=== PATIENT | female | born 1985 | race Asian ===

== ENCOUNTER 2016-12-15 14:40 | Emergency (ER) | payer OTHER ==
[~2016-12-15] VITALS: Ht 154.9 cm; Wt 52.2 kg
[2016-12-15 14:57] VITALS: BP 107/65
--- NOTE | 2016-12-15 15:49 | RAD ---
Indication cough. PA and lateral views of the chest were obtained. No prior imaging is available. The heart and pulmonary vessels appear normal. The lungs are clear. There is no pleural fluid or pneumothorax. The bony structures appear grossly intact. IMPRESSION: No acute or focal process is seen in the chest
[2016-12-15] MEDS ORDERED: KETO5DRO3 EACHEYE (16:08)
[2016-12-15] MEDS ORDERED: CETI10TA22 PO (16:08)
[2016-12-15] MEDS ORDERED: BENZ100C PO (16:08)
--- NOTE | 2016-12-15 16:08 | PHYS DOC ---
Past Medical History Past Medical History: No Pertinent History Past Surgical History: No Surgical History Alcohol Use: None Drug Use: None Adult General Chief Complaint Chief Complaint: EYE PROBLEMS [facility] HPI Patient is a 31 year old female with no significant medical history who presents with bilateral eye itching and pain intermittently for almost a week. Patient states she was seen [facility] the [facility] and was instructed to buy eyedrops. She states she never brought to the eyedrops because she does not want to use eye drops. Patient denies any vision loss. Patient's also complaining of a productive cough for 4 days. She states yesterday she coughed and had a tiny streak of blood in her sputum and was concerned. She denies any chest pain or shortness of breath. She is also complaining of body aches. Historian was patient using personal companion line for Malagasy. Review of Systems Review of Systems Constitutional: body aches Eyes: Bilateral eye redness and itchiness with pain for one week HENT: Denies nasal congestion or sore throat [] Respiratory: cough Cardiovascular: No additional information not addressed in HPI [] GI: Denies abdominal pain, nausea, vomiting, bloody stools or diarrhea [] : Denies dysuria or hematuria [] Musculoskeletal: Denies back pain or joint pain [] Integument: Denies rash or skin lesions [] Neurologic: Denies headache, focal weakness or sensory changes [] Endocrine: Denies polyuria or polydipsia [] Allergies Allergies Allergies Coded Allergies Type Severity Reaction Last Updated Verified No Known Drug Allergies 12/15/16 No Physical Exam Physical Exam Constitutional: Well developed, well nourished, no acute distress, non-toxic appearance. [] HENT: Normocephalic, atraumatic, bilateral external ears normal, oropharynx moist, no oral exudates, nose normal. [] Eyes: PERRLA, EOMI, conjunctiva normal, no discharge. [] Neck: Normal range of motion, no tenderness, supple, no stridor. [] Cardiovascular:Heart rate regular rhythm, no murmur [] Lungs & Thorax: Bilateral breath sounds clear to auscultation [] Abdomen: Bowel sounds normal, soft, no tenderness, no masses, no pulsatile masses. [] Skin: Warm, dry, no erythema, no rash. [] Back: No tenderness, no CVA tenderness. [] Extremities: No tenderness, no cyanosis, no clubbing, ROM intact, no edema. [] Neurologic: Alert and oriented X 3, normal motor function, normal sensory function, no focal deficits noted. [] Psychologic: Affect normal, judgement normal, mood normal. [] Current Patient Data Vital Signs Vital Signs Date Time Temp Pulse Resp B/P (MAP) Pulse Ox O2 Delivery O2 Flow Rate FiO2 12/15/16 14:57 98.4 84 18 97 Room Air 98.4 EKG EKG [] Radiology/Procedures Radiology/Procedures [] Course & Med Decision Making Course & Med Decision Making Pertinent Labs and Imaging studies reviewed. (See chart for details) This is a 31 year old Malagasy speaking patient using the personal companion line complaining of bilateral eye pain redness and itching for almost 7 days. Patient states she was seen at the health department and was instructed to use eye drops. She states she did not buy the eyedrops because she does not want to use eye drops. I highly suspect she has allergic conjunctivitis. Sent her home with zaditor eye drops and Zyrtec. She is also complaining of a productive cough , chest x-ray interpreted by radiologist is negative for any acute findings. Patient was discharged with Tessalon Perles for her cough. Discharged with ibuprofen for pain. Follow-up with her PCP in one week as well as clinical ob in a week. She was provided return precautions and discharged in stable condition. Dragon Disclaimer Dragon Disclaimer This electronic medical record was generated, in whole or in part, using a voice recognition dictation system. Departure Departure Impression: Primary Impression: Allergic conjunctivitis of both eyes Additional Impression: Cough Disposition: 01 HOME, SELF-CARE Condition: STABLE Referrals: NO PCP (PCP) Susi BUTTERFIELD MD Follow-up in one week Patient Instructions: Allergic Conjunctivitis, [id number], Cough, Adult Additional Instructions: Please use the prescribed eye drops as ordered. Take the rest of the medicines as prescribed. You can follow-up with the provided eye doctor if symptoms continue in the next 7 days. Take the prescribed pain medicine for pain or fever. Come back to the ED symptoms worsen. Scripts Benzonatate (TESSALON PERLE) 100 Mg Capsule 1 CAP PO TID, #30 CAP Prov: MUTUNGA,FELICITY MODEL TECHNICIAN 12/15/16 Cetirizine Hcl (ZYRTEC) 10 Mg Tablet 1 TAB PO DAILY, #30 TAB 2 Refills Prov: FELICITY MORFIN APRN 12/15/16 Ketotifen Fumarate (ZADITOR) 5 Ml Drops 1 DROP EACHEYE BID, #5 ML 1 Refill Prov: FELICITY MORFIN APRN 12/15/16 Problem Qualifiers FELICITY MORFIN APRN Dec 15, 2016 16:08
== END 2016-12-15 16:11 | disposition home or self-care (01) ==
LOC: ER 14:40
DX: H10.13 Acute atopic conjunctivitis, bilateral (principal); R05 Cough; M79.1 Myalgia
CPT/HCPCS: 71020; 99284-25

== ENCOUNTER 2018-04-12 11:08 | Emergency (ER) | payer BC, OTHER ==
[~2018-04-12] VITALS: Ht 154.9 cm; Wt 60.3 kg
[~2018-04-12 11:08] MED LIST: BENZ100C PO; CETI10TA22 PO; KETO5DRO4 EACHEYE
[2018-04-12 11:54] LABS: BILIRUBIN,URINE NEGATIVE (NEG); CLARITY,URINE CLEAR; COLOR,URINE YELLOW; NITRITE,URINE NEGATIVE (NEG); PROTEIN,URINE NEGATIVE (NEG-TRACE); UROBILINOGEN,URINE 0.2 mg/dL (0.2 mg/dL)
[2018-04-12 12:14] LABS: BACTERIA,URINE 0 /HPF (0-FEW); RBC,URINE OCC /HPF (0-2)
[2018-04-12 12:15] LABS: SQUAMOUS EPITHELIAL CELL,UR MOD /LPF
--- NOTE | 2018-04-12 12:23 | EKG ---
[facility] [address] [place] [address] Test Date: 2018-04-12 Test Time: 11:41:44 Pat Name: SELAM ROBERTO Department: Room: Gender: F Fashion Stylist: : 1985 Requested By: PRAVEENA BOB Order Number: [id number] Reading MD: Roge Estes Measurements Intervals [place] Rate: 64 P: 44 UT: 152 QRS: 15 QRSD: 84 T: 9 QT: 426 QTc: 439 Interpretive Statements SINUS RHYTHM Electronically Signed On 04-15-2018 12:23:11 CDT by Roge Estes
[2018-04-12 12:34] LABS: BASO # 0.1 x10^3/uL (0.0-0.2); BASO % 1 % (0-3); EOS # 1.2 x10^3/uL (0.0-0.7); EOS % 13 % (0-3); HEMATOCRIT 39.6 % (36.0-47.0); HEMOGLOBIN 13.8 g/dL (12.0-15.5); LYMPH # 2.4 x10^3/uL (1.0-4.8); LYMPH % 25 % (24-48); MEAN CORPUSCULAR HEMOGLOBIN 30 pg (25-35); MEAN CORPUSCULAR HGB CONC 35 g/dL (31-37); MEAN CORPUSCULAR VOLUME 88 fL (79-100); MONO # 0.9 x10^3/uL (0.0-1.1); MONO % 10 % (0-9); NEUT # 4.9 x10^3uL (1.8-7.7); NEUT % 51 % (31-73); PLATELET COUNT 91 x10^3/uL (140-400); RED BLOOD COUNT 4.52 x10^6/uL (3.50-5.40); RED CELL DISTRIBUTION WIDTH 12.5 % (11.5-14.5); WHITE BLOOD COUNT 9.5 x10^3/uL (4.0-11.0)
[2018-04-12 12:49] LABS: CALCIUM 9.9 mg/dL (8.5-10.1); CREATININE 0.6 mg/dL (0.6-1.0); GFR 117.4; POTASSIUM 3.8 mmol/L (3.5-5.1)
[2018-04-12 12:54] LABS: ALBUMIN 4.1 g/dL (3.4-5.0); TOTAL BILIRUBIN 0.8 mg/dL (0.2-1.0); TOTAL PROTEIN 8.4 g/dL (6.4-8.2)
[2018-04-12] MEDS ORDERED: MECLIZINE HCL 12.5 MG TABLET. PO ONE (14:00)
[2018-04-12] MEDS ORDERED: ONDANSETRON ODT 4 MG TAB.RAPDIS. PO ONE (14:00)
[2018-04-12 14:21] LABS: % BANDS 2 % (0-9); % BASOS 2 % (0-3); % EOS 10 % (0-5); % LYMPHS 23 % (24-48); % MONOS 6 % (0-10); % SEGS 57 % (35-66); PLT ESTIMATE DECREASED (ADEQUATE)
[2018-04-12 15:00] VITALS: BP 98/60
[2018-04-12] MEDS ORDERED: ONDA4TAB7 PO (15:26)
[2018-04-12] MEDS ORDERED: MECL25TA3 PO (15:26)
--- NOTE | 2018-04-12 17:21 | PHYS DOC ---
Past Medical History Past Medical History: No Pertinent History Past Surgical History: No Surgical History Alcohol Use: None Drug Use: None Adult General Chief Complaint Chief Complaint: DIZZY/LIGHT HEADED HPI HPI Patient is a 32 year old Stateless female who presents with acute onset dizziness this morning. Patient reports room spinning, nausea and vomiting prior to ED arrival. Heart sinus congestion, tenderness. No fevers chills, [] Review of Systems Review of Systems ROS as per HPI All other systems were reviewed and found to be within normal limits, except as documented in this note. Current Medications Current Medications Current Medications Medications (Trade) Dose Ordered Sig/Palmira Start Time Stop Time Status Last Admin Dose Admin Meclizine HCl (Antivert) 25 mg 1X ONCE 04/12/18 14:00 04/12/18 14:01 DC 04/12/18 14:00 25 MG Ondansetron HCl (Zofran Odt) 4 mg 1X ONCE 04/12/18 14:00 04/12/18 14:01 DC 04/12/18 14:00 4 MG Allergies Allergies Allergies Coded Allergies Type Severity Reaction Last Updated Verified No Known Drug Allergies 12/15/16 No Physical Exam Physical Exam Constitutional: Well developed, well nourished, no acute distress, non-toxic appearance. [] HENT: Normocephalic, atraumatic,maxillary sinus tenderness, bilateral external ears normal, oropharynx moist, no oral exudates, nose congestion, rhinorrheal. [ ] Eyes: PERRLA, EOMI, conjunctiva normal, no discharge. nystagmus, fatigues on exam.[] Neck: Normal range of motion, no tenderness, supple. [] Cardiovascular:Heart rate regular rhythm, no murmur [] Lungs & Thorax: Bilateral breath sounds clear to auscultation [] Abdomen: Bowel sounds normal. [] Skin: Warm, dry, no erythema, no rash. [] Back: No tenderness. [] Extremities: No tenderness, no edema. [] Neurologic: Alert and oriented X 3, normal motor function, normal sensory function, no focal deficits noted. [] Psychologic: Affect normal, judgement normal, mood normal. [] Current Patient Data Vital Signs Vital Signs Date Time Temp Pulse Resp B/P (MAP) Pulse Ox O2 Delivery O2 Flow Rate FiO2 04/12/18 15:00 65 18 99 04/12/18 11:25 98.0 104/69 (81) Room Air 98.0 Lab Values Laboratory Tests Test 04/12/18 11:22 04/12/18 11:43 04/12/18 12:20 Urine Collection Type Void Urine Color Yellow Urine Clarity Clear Urine pH 6.0 Urine Specific [place] 1.015 Urine Protein Negative mg/dL (NEG-TRACE) Urine Glucose (UA) Negative mg/dL (NEG) Urine Ketones (Stick) Negative mg/dL (NEG) Urine Blood Trace (NEG) Urine Nitrite Negative (NEG) Urine Bilirubin Negative (NEG) Urine Urobilinogen Dipstick 0.2 mg/dL (0.2 mg/dL) Urine Leukocyte Esterase Negative (NEG) Urine RBC Occ /HPF (0-2) Urine WBC 1-4 /HPF (0-4) Urine Squamous Epithelial Cells Mod /LPF Urine Bacteria 0 /HPF (0-FEW) Urine Mucus Slight /LPF POC Urine HCG, Qualitative Hcg negative (Negative) White Blood Count 9.5 x10^3/uL (4.0-11.0) Red Blood Count 4.52 x10^6/uL (3.50-5.40) Hemoglobin 13.8 g/dL (12.0-15.5) Hematocrit 39.6 % (36.0-47.0) Mean Corpuscular Volume 88 fL (79-100) Mean Corpuscular Hemoglobin 30 pg (25-35) Mean Corpuscular Hemoglobin Concent 35 g/dL (31-37) Red Cell Distribution Width 12.5 % (11.5-14.5) Platelet Count 91 x10^3/uL (140-400) L Neutrophils (%) (Auto) 51 % (31-73) Lymphocytes (%) (Auto) 25 % (24-48) Monocytes (%) (Auto) 10 % (0-9) H Eosinophils (%) (Auto) 13 % (0-3) H Basophils (%) (Auto) 1 % (0-3) Neutrophils # (Auto) 4.9 x10^3uL (1.8-7.7) Lymphocytes # (Auto) 2.4 x10^3/uL (1.0-4.8) Monocytes # (Auto) 0.9 x10^3/uL (0.0-1.1) Eosinophils # (Auto) 1.2 x10^3/uL (0.0-0.7) H Basophils # (Auto) 0.1 x10^3/uL (0.0-0.2) Segmented Neutrophils % 57 % (35-66) Band Neutrophils % 2 % (0-9) Lymphocytes % 23 % (24-48) L Monocytes % 6 % (0-10) Eosinophils % 10 % (0-5) H Basophils % 2 % (0-3) Platelet Estimate Decreased (ADEQUATE) Sodium Level 139 mmol/L (136-145) Potassium Level 3.8 mmol/L (3.5-5.1) Chloride Level 101 mmol/L (98-107) Carbon Dioxide Level 27 mmol/L (21-32) Anion Gap 11 (6-14) Blood Urea Nitrogen 15 mg/dL (7-20) Creatinine 0.6 mg/dL (0.6-1.0) Estimated GFR (Cockcroft-Gault) 117.4 BUN/Creatinine Ratio 25 (6-20) H Glucose Level 85 mg/dL (70-99) Calcium Level 9.9 mg/dL (8.5-10.1) Total Bilirubin 0.8 mg/dL (0.2-1.0) Aspartate Amino Transferase (AST) 17 U/L (15-37) Alanine Aminotransferase (ALT) 20 U/L (14-59) Alkaline Phosphatase 55 U/L (46-116) Total Protein 8.4 g/dL (6.4-8.2) H Albumin 4.1 g/dL (3.4-5.0) Albumin/Globulin Ratio 1.0 (1.0-1.7) Laboratory Tests 04/12/18 12:20 Laboratory Tests 04/12/18 12:20 EKG EKG [EKG: Reviewed] Radiology/Procedures Radiology/Procedures [] Course & Med Decision Making Course & Med Decision Making Pertinent Labs and Imaging studies reviewed. (See chart for details) [Transformation Consultant used throughout the patient exam. Symptoms are consistent viral upper respiratory tract rate checked infection and vertigo. Symptoms improved with treatment. We'll continue current treatment. Courtesy work note provided. PCP follow-up recommended. Return precautions reviewed.] Dragon Disclaimer Dragon Disclaimer This electronic medical record was generated, in whole or in part, using a voice recognition dictation system. Departure Departure Impression: Primary Impression: Vertigo Disposition: 01 HOME, SELF-CARE Condition: GOOD Patient Instructions: Vertigo, [id number] Additional Instructions: You were evaluated in the emergency department for dizziness. Your exam is consistent with sinusitis with vertigo. Please take medications as directed and be careful when standing and walking as urine increased risk of fall and injury. Follow-up with your PCP early next week for reevaluation. Return to the ED if new or worsening symptoms. Scripts Ondansetron Hcl (ZOFRAN) 4 Mg Tablet 1 TAB PO Q6HRS, #10 TAB 0 Refills Prov: PRAVEENA BOB DO 04/12/18 Meclizine Hcl (MECLIZINE HCL) 25 Mg Tablet 2 TAB PO TID, #30 TAB Prov: PRAVEENA BOB DO 04/12/18 PRAVEENA BOB DO Apr 12, 2018 17:21
== END 2018-04-12 15:30 | disposition home or self-care (01) ==
LOC: ER 11:08
DX: R42 Dizziness and giddiness (principal); R11.2 Nausea with vomiting, unspecified; R09.81 Nasal congestion
CPT/HCPCS: 36415; 80053; 81001; 81025; 85007; 85025; 93005; 99285; J8597; Q0162

== ENCOUNTER 2018-12-17 10:52 | Emergency (ER) | payer BC, OTHER ==
[~2018-12-17] VITALS: Ht 154.9 cm; Wt 53.5 kg
[~2018-12-17 10:52] MED LIST changes: +MECL25TA3 PO; +ONDA4TAB7 PO
[2018-12-17 11:54] LABS: BILIRUBIN,URINE SMALL (NEG); CLARITY,URINE CLEAR; COLOR,URINE AMBER; NITRITE,URINE NEGATIVE (NEG); PH,URINE 5.5; PROTEIN,URINE NEGATIVE (NEG-TRACE)
--- NOTE | 2018-12-17 11:56 | PHYS DOC ---
Past Medical History Past Medical History: No Pertinent History Past Surgical History: No Surgical History Alcohol Use: None Drug Use: None Adult General Chief Complaint Chief Complaint: NAUSEA/VOMITING/DIARRHA HPI HPI Patient is a 33 year old female 1 para 1 presenting to the ED today complaining of nausea vomiting symptoms have been going on for 3 days. Denies any fever. Denies any abdominal pain or cramping. Denies any diarrhea. She states her last menstrual cycle was November 04, 2018. Gas Meter Checker line was used for [place] Review of Systems Review of Systems Constitutional: Denies fever or chills [] Eyes: Denies change in visual acuity, redness, or eye pain [] HENT: Denies nasal congestion or sore throat [] Respiratory: Denies cough or shortness of breath [] Cardiovascular: No additional information not addressed in HPI [] GI: Reports nausea, vomiting. Denies abdominal pain, bloody stools or diarrhea [] : Denies dysuria or hematuria [] Musculoskeletal: Denies back pain or joint pain [] Integument: Denies rash or skin lesions [] Neurologic: Denies headache, focal weakness or sensory changes [] All other systems were reviewed and found to be within normal limits, except as documented in this note. Current Medications Current Medications Current Medications Medications (Trade) Dose Ordered Sig/[place] Start Time Stop Time Status Last Admin Dose Admin Sodium Chloride 1,000 ml @ 1,000 mls/hr 1X ONCE 12/17/18 12:00 12/17/18 12:59 DC 12/17/18 12:05 1,000 MLS/HR Allergies Allergies Allergies Coded Allergies Type Severity Reaction Last Updated Verified No Known Drug Allergies 12/15/16 No Physical Exam Physical Exam Constitutional: Well developed, well nourished, no acute distress, non-toxic appearance. [] HENT: Normocephalic, atraumatic, bilateral external ears normal, oropharynx moist, no oral exudates, nose normal. [] Eyes: PERRLA, EOMI, conjunctiva normal, no discharge. [] Neck: Normal range of motion, no tenderness, supple, no stridor. [] Cardiovascular:Heart rate regular rhythm, no murmur [] Lungs & Thorax: Bilateral breath sounds clear to auscultation [] Abdomen: Bowel sounds normal, soft, no tenderness, no masses, no pulsatile masses. [] Skin: Warm, dry, no erythema, no rash. [] Back: No tenderness, no CVA tenderness. [] Extremities: No tenderness, no cyanosis, no clubbing, ROM intact, no edema. [] Neurologic: Alert and oriented X 3, normal motor function, normal sensory function, no focal deficits noted. [] Psychologic: Affect normal, judgement normal, mood normal. [] Current Patient Data Vital Signs Vital Signs Date Time Temp Pulse Resp B/P (MAP) Pulse Ox O2 Delivery O2 Flow Rate FiO2 12/17/18 11:34 97.9 68 16 94/59 (71) 100 Room Air 97.9 Lab Values Laboratory Tests Test 12/17/18 11:25 12/17/18 11:33 12/17/18 11:59 12/17/18 12:05 Urine Collection Type Unknown Urine Color Monie Urine Clarity Clear Urine pH 5.5 Urine Specific [place] >=1.030 Urine Protein Negative mg/dL (NEG-TRACE) Urine Glucose (UA) Negative mg/dL (NEG) Urine Ketones (Stick) 15 mg/dL (NEG) Urine Blood Negative (NEG) Urine Nitrite Negative (NEG) Urine Bilirubin Small (NEG) Urine Urobilinogen Dipstick 1.0 mg/dL (0.2 mg/dL) Urine Leukocyte Esterase Negative (NEG) Urine RBC 0 /HPF (0-2) Urine WBC 1-4 /HPF (0-4) Urine Squamous Epithelial Cells Many /LPF Urine Bacteria Moderate /HPF (0-FEW) Urine Mucus Mod /LPF POC Urine HCG, Qualitative Hcg positive (Negative) Maternal Serum HCG Beta Subunit 03751 mIU/mL (0-5) H White Blood Count 8.9 x10^3/uL (4.0-11.0) Red Blood Count 4.14 x10^6/uL (3.50-5.40) Hemoglobin 12.7 g/dL (12.0-15.5) Hematocrit 36.7 % (36.0-47.0) Mean Corpuscular Volume 89 fL (79-100) Mean Corpuscular Hemoglobin 31 pg (25-35) Mean Corpuscular Hemoglobin Concent 34 g/dL (31-37) Red Cell Distribution Width 13.0 % (11.5-14.5) Platelet Count 80 x10^3/uL (140-400) L Neutrophils (%) (Auto) 66 % (31-73) Lymphocytes (%) (Auto) 17 % (24-48) L Monocytes (%) (Auto) 10 % (0-9) H Eosinophils (%) (Auto) 7 % (0-3) H Basophils (%) (Auto) 1 % (0-3) Neutrophils # (Auto) 5.9 x10^3uL (1.8-7.7) Lymphocytes # (Auto) 1.5 x10^3/uL (1.0-4.8) Monocytes # (Auto) 0.9 x10^3/uL (0.0-1.1) Eosinophils # (Auto) 0.6 x10^3/uL (0.0-0.7) Basophils # (Auto) 0.1 x10^3/uL (0.0-0.2) Sodium Level 137 mmol/L (136-145) Potassium Level 4.0 mmol/L (3.5-5.1) Chloride Level 103 mmol/L (98-107) Carbon Dioxide Level 23 mmol/L (21-32) Anion Gap 11 (6-14) Blood Urea Nitrogen 16 mg/dL (7-20) Creatinine 0.5 mg/dL (0.6-1.0) L Estimated GFR (Cockcroft-Gault) 143.9 BUN/Creatinine Ratio 32 (6-20) H Glucose Level 86 mg/dL (70-99) Calcium Level 8.8 mg/dL (8.5-10.1) Total Bilirubin 0.9 mg/dL (0.2-1.0) Aspartate Amino Transferase (AST) 28 U/L (15-37) Alanine Aminotransferase (ALT) 33 U/L (14-59) Alkaline Phosphatase 36 U/L (46-116) L Total Protein 7.3 g/dL (6.4-8.2) Albumin 3.7 g/dL (3.4-5.0) Albumin/Globulin Ratio 1.0 (1.0-1.7) Laboratory Tests 12/17/18 12:05 Laboratory Tests 12/17/18 12:05 EKG EKG [] Radiology/Procedures Radiology/Procedures [] Course & Med Decision Making Course & Med Decision Making Pertinent Labs and Imaging studies reviewed. (See chart for details) This is a 33-year-old female patient 1 para 1 presenting to the ED today with nausea vomiting, symptoms began 3 days ago. Positive urine hCG. Beta hCG 41,959. CBC with normal WBC, hemoglobin and hematocrit are normal. CMP-no acute findings. Urine analysis is negative for leukocytes, negative for nitrites urine also appears contaminated. Patient was discharged to home on Zofran. Provided OB for follow-up. vitamins recommended. Dragon Disclaimer Dragon Disclaimer This electronic medical record was generated, in whole or in part, using a voice recognition dictation system. Departure Departure Impression: Primary Impression: Additional Impression: Nausea and vomiting during Disposition: HOME, SELF-CARE Condition: STABLE Referrals: UNKNOWN PCP NAME (PCP) THO NICE MD follow up in 1-2 weeks Patient Instructions: ABCs of , Diet - Hyperemesis Gravidarum Additional Instructions: You were evaluated in the emergency room, your test is positive. Please follow-up with your own ELECTRONIC GAME DEVELOPER or the provided ELECTRONIC GAME DEVELOPER in 1 week. Please start taking vitamins. Take the prescribed Zofran as needed for nausea/vomiting. Scripts Pnv Cmb#95/Ferrous Fumarate/Fa ( TABLET) 1 Each Tablet 1 TAB PO DAILY, #90 TAB 3 Refills Prov: FELICITY MORFIN APRN 12/17/18 Ondansetron (ONDANSETRON ODT) 4 Mg Tab.rapdis 1 TAB PO PRN Q6-8HRS, #30 TAB Prov: FELICITY MORFIN APRN 12/17/18 Problem Qualifiers Primary Impression: Weeks of gestation: less than 8 weeks Qualified Codes: Z3A.01 - Less than 8 weeks gestation of FELICITY MORFIN APRN Dec 17, 2018 11:56
[2018-12-17] MEDS ORDERED: IV NORMAL SALINE 1000ML BAG 1,000 ML IV ONE (12:00)
[2018-12-17 12:03] LABS: SQUAMOUS EPITHELIAL CELL,UR MANY /LPF
[2018-12-17 12:04] LABS: BACTERIA,URINE MODERATE /HPF (0-FEW); RBC,URINE 0 /HPF (0-2)
[2018-12-17 12:21] LABS: BASO # 0.1 x10^3/uL (0.0-0.2); BASO % 1 % (0-3); EOS # 0.6 x10^3/uL (0.0-0.7); EOS % 7 % (0-3); HEMATOCRIT 36.7 % (36.0-47.0); HEMOGLOBIN 12.7 g/dL (12.0-15.5); LYMPH # 1.5 x10^3/uL (1.0-4.8); LYMPH % 17 % (24-48); MEAN CORPUSCULAR HEMOGLOBIN 31 pg (25-35); MEAN CORPUSCULAR HGB CONC 34 g/dL (31-37); MEAN CORPUSCULAR VOLUME 89 fL (79-100); MONO # 0.9 x10^3/uL (0.0-1.1); MONO % 10 % (0-9); NEUT # 5.9 x10^3uL (1.8-7.7); NEUT % 66 % (31-73); PLATELET COUNT 80 x10^3/uL (140-400); RED BLOOD COUNT 4.14 x10^6/uL (3.50-5.40); WHITE BLOOD COUNT 8.9 x10^3/uL (4.0-11.0)
[2018-12-17 12:41] LABS: CALCIUM 8.8 mg/dL (8.5-10.1); CREATININE 0.5 mg/dL (0.6-1.0); GFR 143.9
[2018-12-17 12:47] LABS: ALBUMIN 3.7 g/dL (3.4-5.0); TOTAL BILIRUBIN 0.9 mg/dL (0.2-1.0); TOTAL PROTEIN 7.3 g/dL (6.4-8.2)
[2018-12-17] MEDS ORDERED: ONDA4TAB12 PO (13:26)
[2018-12-17] MEDS ORDERED: PNV1TABL25 PO (13:26)
[2018-12-17 13:30] VITALS: BP 92/55
== END 2018-12-17 13:49 | disposition home or self-care (01) ==
LOC: ER 10:52
DX: O21.9 Vomiting of pregnancy, unspecified (principal); Z3A.01 Less than 8 weeks gestation of pregnancy
CPT/HCPCS: 36415; 80053; 81001; 81025; 84702; 85025; 87086; 96360; 96361; 99285; J7030; 27250; 96374

== ENCOUNTER 2018-12-20 10:58 | Emergency (ER) | payer OTHER ==
[~2018-12-20] VITALS: Ht 154.9 cm; Wt 53.5 kg
[~2018-12-20 10:58] MED LIST changes: +ONDA4TAB12 PO; +PNV1TABL25 PO
[2018-12-20 11:44] LABS: BILIRUBIN,URINE NEGATIVE (NEG); CLARITY,URINE CLEAR; COLOR,URINE YELLOW; NITRITE,URINE NEGATIVE (NEG); PH,URINE 5.5; PROTEIN,URINE NEGATIVE (NEG-TRACE); UROBILINOGEN,URINE 0.2 mg/dL (0.2 mg/dL)
[2018-12-20] MEDS ORDERED: PROCHLORPERAZINE 10 MG/2 ML VIAL. IV ONE (11:45)
[2018-12-20] MEDS ORDERED: IV NORMAL SALINE 1000ML BAG 1,000 ML IV ONE (11:45)
[2018-12-20] MEDS ORDERED: ONDANSETRON PF 4 MG/2 ML VIAL. IV ONE (11:45)
[2018-12-20 11:49] LABS: BACTERIA,URINE 0 /HPF (0-FEW); RBC,URINE 0 /HPF (0-2); SQUAMOUS EPITHELIAL CELL,UR MANY /LPF; WBC,URINE 0 /HPF (0-4)
[2018-12-20 11:51] LABS: BARBITURATES NEG (NEG); BENZODIAZEPINES NEG (NEG); CANNABINOIDS NEG (NEG); COCAINE NEG (NEG); METHADONE NEG (NEG); OPIATES NEG (NEG); PHENCYCLIDINE NEG (NEG)
[2018-12-20 11:52] LABS: AMPHETAMINE/METHAMPHETAMINE NEG (NEG)
[2018-12-20 12:26] LABS: CALCIUM 8.9 mg/dL (8.5-10.1); CREATININE 0.5 mg/dL (0.6-1.0); GFR 143.9; POTASSIUM 3.7 mmol/L (3.5-5.1)
[2018-12-20 12:33] LABS: ALBUMIN 3.7 g/dL (3.4-5.0); TOTAL BILIRUBIN 0.9 mg/dL (0.2-1.0); TOTAL PROTEIN 7.3 g/dL (6.4-8.2)
[2018-12-20 12:34] LABS: BASO % 0 % (0-3); EOS # 0.7 x10^3/uL (0.0-0.7); EOS % 8 % (0-3); HEMATOCRIT 36.7 % (36.0-47.0); HEMOGLOBIN 12.6 g/dL (12.0-15.5); LYMPH # 1.4 x10^3/uL (1.0-4.8); LYMPH % 17 % (24-48); MEAN CORPUSCULAR HEMOGLOBIN 31 pg (25-35); MEAN CORPUSCULAR HGB CONC 34 g/dL (31-37); MEAN CORPUSCULAR VOLUME 89 fL (79-100); MONO # 0.9 x10^3/uL (0.0-1.1); MONO % 10 % (0-9); NEUT # 5.6 x10^3uL (1.8-7.7); NEUT % 65 % (31-73); PLATELET COUNT 76 x10^3/uL (140-400); RED BLOOD COUNT 4.13 x10^6/uL (3.50-5.40); RED CELL DISTRIBUTION WIDTH 12.8 % (11.5-14.5); WHITE BLOOD COUNT 8.6 x10^3/uL (4.0-11.0)
[2018-12-20 13:00] VITALS: BP 100/59
--- NOTE | 2018-12-20 13:08 | RAD ---
Examination: PREG 1ST TRIMESTER History: Vaginal bleeding Comparison/Correlation: None Findings: OB ultrasound exam was performed. Uterus measures 11.6 cm x 8.2 cm x 5.2 cm. Small amount of subchorionic hemorrhage is present subjacent to the gestational sac. Subchronic hemorrhage measures up to 1.2 cm x 0.5 cm x 0.3 cm. Intrauterine gestational sac is present with pole having a heart rate of 121 bpm. Gestational sac measures 2.3 cm in mean diameter corresponding to 7 weeks 2 day gestation., Length is 0.8 cm corresponding to 6 weeks 5 day gestation. Yolk sac is identified. Ultrasound EDC is 08/08/2019. Myometrium is unremarkable. Maternal right ovary measures 4.6 cm x 4.4 cm x 3.2 centimeter. Right adnexal cyst measuring up to 4.4 cm in maximum diameter. Left ovary is not visualized due to overlying bowel. Impression: Single living intrauterine gestation with crown-rump length corresponding 6 weeks 5 days gestation. Small subchronic hemorrhage. Right adnexal cyst is physiologic in appearance. Electronically signed by: Molina Man MD (12/20/2018 1:05 PM) [id number]
[2018-12-20] MEDS ORDERED: ONDA4TAB12 PO (13:53)
--- NOTE | 2018-12-20 13:54 | PHYS DOC ---
Past Medical History Past Medical History: No Pertinent History Past Surgical History: No Surgical History Alcohol Use: None Drug Use: None Adult General Chief Complaint Chief Complaint: VAGINAL BLEEDING HPI HPI Patient is a 33 year old female who presents complaining of vaginal spotting that began today, denies any injury. She is a 2 para 1 currently 6 weeks . Denies any abdominal pain. She is complaining of dizziness. She states the dizziness is worse when she is walking around. She states she was seen in the ED 3 days ago and was informed she is . 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 Denies any urgency frequency dysuria she also states she has continued to have nausea and intermittent episodes of vomiting since she was discharged 3 days ago. Review of Systems Review of Systems Constitutional: Denies fever or chills [] Eyes: Denies change in visual acuity, redness, or eye pain [] HENT: Denies nasal congestion or sore throat [] Respiratory: Denies cough or shortness of breath [] Cardiovascular: No additional information not addressed in HPI [] GI: Reports nausea and vomiting in . Denies abdominal pain, bloody stools or diarrhea [] Female :n reports vaginal bleeding in : Denies dysuria or hematuria [] Musculoskeletal: Denies back pain or joint pain [] Integument: Denies rash or skin lesions [] Neurologic: Denies headache, focal weakness or sensory changes [] All other systems were reviewed and found to be within normal limits, except as documented in this note. Current Medications Current Medications Current Medications Medications (Trade) Dose Ordered Sig/[place] Start Time Stop Time Status Last Admin Dose Admin Ondansetron HCl (Zofran) 4 mg 1X ONCE 12/20/18 11:45 12/20/18 11:46 DC 12/20/18 12:36 4 MG Prochlorperazine Edisylate (Compazine) 10 mg 1X ONCE 12/20/18 11:45 12/20/18 11:46 DC 12/20/18 12:36 10 MG Sodium Chloride 1,000 ml @ 1,000 mls/hr 1X ONCE 12/20/18 11:45 12/20/18 12:44 DC 12/20/18 12:36 1,000 MLS/HR Allergies Allergies Allergies Coded Allergies Type Severity Reaction Last Updated Verified No Known Drug Allergies 12/15/16 No Physical Exam Physical Exam Constitutional: Well developed, well nourished, no acute distress, non-toxic appearance. [] HENT: Normocephalic, atraumatic, bilateral external ears normal, oropharynx moist, no oral exudates, nose normal. [] Eyes: PERRLA, EOMI, conjunctiva normal, no discharge. [] Neck: Normal range of motion, no tenderness, supple, no stridor. [] Cardiovascular:Heart rate regular rhythm, no murmur [] Lungs & Thorax: Bilateral breath sounds clear to auscultation [] Abdomen: Bowel sounds normal, soft, no tenderness, no masses, no pulsatile masses. [] Pelvic exam external pelvic appears normal, cervix is visualized, close, no CMT, no adnexal tenderness, trace amount of spotting noted in the vaginal vault. Skin: Warm, dry, no erythema, no rash. [] Back: No tenderness, no CVA tenderness. [] Extremities: No tenderness, no cyanosis, no clubbing, ROM intact, no edema. [] Neurologic: Alert and oriented X 3, normal motor function, normal sensory function, no focal deficits noted. [] Psychologic: Affect normal, judgement normal, mood normal. [] Current Patient Data Vital Signs Vital Signs Date Time Temp Pulse Resp B/P (MAP) Pulse Ox O2 Delivery O2 Flow Rate FiO2 12/20/18 11:15 98.5 60 16 98/62 (74) 100 Room Air 98.5 Lab Values Laboratory Tests Test 12/20/18 11:25 12/20/18 12:05 Urine Collection Type Unknown Urine Color Yellow Urine Clarity Clear Urine pH 5.5 Urine Specific [place] 1.020 Urine Protein Negative mg/dL (NEG-TRACE) Urine Glucose (UA) Negative mg/dL (NEG) Urine Ketones (Stick) Negative mg/dL (NEG) Urine Blood Negative (NEG) Urine Nitrite Negative (NEG) Urine Bilirubin Negative (NEG) Urine Urobilinogen Dipstick 0.2 mg/dL (0.2 mg/dL) Urine Leukocyte Esterase Negative (NEG) Urine RBC 0 /HPF (0-2) Urine WBC 0 /HPF (0-4) Urine Squamous Epithelial Cells Many /LPF Urine Bacteria 0 /HPF (0-FEW) Urine Opiates Screen Neg (NEG) Urine Methadone Screen Neg (NEG) Urine Barbiturates Neg (NEG) Urine Phencyclidine Screen Neg (NEG) Urine Amphetamine/Methamphetamine Neg (NEG) Urine Benzodiazepines Screen Neg (NEG) Urine Cocaine Screen Neg (NEG) Urine Cannabinoids Screen Neg (NEG) Urine Ethyl Alcohol Neg (NEG) White Blood Count 8.6 x10^3/uL (4.0-11.0) Red Blood Count 4.13 x10^6/uL (3.50-5.40) Hemoglobin 12.6 g/dL (12.0-15.5) Hematocrit 36.7 % (36.0-47.0) Mean Corpuscular Volume 89 fL (79-100) Mean Corpuscular Hemoglobin 31 pg (25-35) Mean Corpuscular Hemoglobin Concent 34 g/dL (31-37) Red Cell Distribution Width 12.8 % (11.5-14.5) Platelet Count 76 x10^3/uL (140-400) L Neutrophils (%) (Auto) 65 % (31-73) Lymphocytes (%) (Auto) 17 % (24-48) L Monocytes (%) (Auto) 10 % (0-9) H Eosinophils (%) (Auto) 8 % (0-3) H Basophils (%) (Auto) 0 % (0-3) Neutrophils # (Auto) 5.6 x10^3uL (1.8-7.7) Lymphocytes # (Auto) 1.4 x10^3/uL (1.0-4.8) Monocytes # (Auto) 0.9 x10^3/uL (0.0-1.1) Eosinophils # (Auto) 0.7 x10^3/uL (0.0-0.7) Basophils # (Auto) 0.0 x10^3/uL (0.0-0.2) Maternal Serum HCG Beta Subunit 75731 mIU/mL (0-5) H Sodium Level 136 mmol/L (136-145) Potassium Level 3.7 mmol/L (3.5-5.1) Chloride Level 100 mmol/L (98-107) Carbon Dioxide Level 24 mmol/L (21-32) Anion Gap 12 (6-14) Blood Urea Nitrogen 6 mg/dL (7-20) L Creatinine 0.5 mg/dL (0.6-1.0) L Estimated GFR (Cockcroft-Gault) 143.9 BUN/Creatinine Ratio 12 (6-20) Glucose Level 87 mg/dL (70-99) Calcium Level 8.9 mg/dL (8.5-10.1) Total Bilirubin 0.9 mg/dL (0.2-1.0) Aspartate Amino Transferase (AST) 11 U/L (15-37) L Alanine Aminotransferase (ALT) 25 U/L (14-59) Alkaline Phosphatase 38 U/L (46-116) L Total Protein 7.3 g/dL (6.4-8.2) Albumin 3.7 g/dL (3.4-5.0) Albumin/Globulin Ratio 1.0 (1.0-1.7) Ethyl Alcohol Level < 10 mg/dL (0-10) Laboratory Tests 12/20/18 12:05 Laboratory Tests 12/20/18 12:05 Microbiology 12/20/18 Wet Prep - Final, Complete EKG EKG [] Radiology/Procedures Radiology/Procedures []PROCEDURE: PREG 1ST TRIMESTER Examination: PREG 1ST TRIMESTER History: Vaginal bleeding Comparison/Correlation: None Findings: OB ultrasound exam was performed. Uterus measures 11.6 cm x 8.2 cm x 5.2 cm. Small amount of subchorionic hemorrhage is present subjacent to the gestational sac. Subchronic hemorrhage measures up to 1.2 cm x 0.5 cm x 0.3 cm. Intrauterine gestational sac is present with pole having a heart rate of 121 bpm. Gestational sac measures 2.3 cm in mean diameter corresponding to 7 weeks 2 day gestation., Length is 0.8 cm corresponding to 6 weeks 5 day gestation. Yolk sac is identified. Ultrasound EDC is 08/08/2019. Myometrium is unremarkable. Maternal right ovary measures 4.6 cm x 4.4 cm x 3.2 centimeter. Right adnexal cyst measuring up to 4.4 cm in maximum diameter. Left ovary is not visualized due to overlying bowel. Impression: Single living intrauterine gestation with crown-rump length corresponding 6 weeks 5 days gestation. Small subchronic hemorrhage. Right adnexal cyst is physiologic in appearance. Electronically signed by: Molina Bateman MD (12/20/2018 1:05 PM) [id number] DICTATED and SIGNED BY: MOLINA BATEMAN MD DATE: 12/20/18 1305 Course & Med Decision Making Course & Med Decision Making Pertinent Labs and Imaging studies reviewed. (See chart for details) This is a 33-year-old female patient presenting to the ED today complaining of vaginal spotting in . She is a 2 para 1. Spotting began today. Patient is in the ED 3 days ago and had a positive test. She is also complaining of nausea and vomiting as well as dizziness. Urine analysis is negative for infection. Beta hCG 61,000, this is up from 41,959 3 days ago. CBC with no acute findings, normal hemoglobin and hematocrit. CMP-negative for any acute findings Urine analysis is negative for infection, wet prep negative for infection Blood group O+ OB ultrasound-Single living intrauterine gestation with crown-rump length corresponding 6 weeks 5 days gestation.Small subchronic hemorrhage.Right adnexal cyst is physiologic in appearance. Patient was given 1 L of IV fluid and Zofran. She is feeling better. Patient was discharged to home with instructions to maintain bedrest, provided return precautions. Follow-up with OB next week. Dragon Disclaimer Dragon Disclaimer This electronic medical record was generated, in whole or in part, using a voice recognition dictation system. Departure Departure Impression: Primary Impression: Nausea and vomiting during Additional Impressions: Threatened Dizziness Subchorionic bleed Disposition: 01 HOME, SELF-CARE Condition: STABLE Referrals: UNKNOWN PCP NAME (PCP) THO NICE MD please follow up next week Patient Instructions: Threatened Miscarriage, [id number] Additional Instructions: You evaluated in the medicine, noted to be 6 weeks . Please do not have any intercourse until the bleeding has stopped. Do not do any strenuous activities. 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 Come back to the ED at any point symptoms worsen Scripts Ondansetron (ONDANSETRON ODT) 4 Mg Tab.rapdis 1 TAB PO PRN Q6-8HRS, #16 TAB Prov: FELICITY MORFIN APRN 12/20/18 Problem Qualifiers Additional Impressions: Subchorionic bleed Fetus number: single or unspecified fetus Trimester: first trimester Qualified Codes: O41.8X10 - Other specified disorders of amniotic fluid and membranes, first trimester, not applicable or unspecified; O46.8X1 - Other antepartum hemorrhage, first trimester FELICITY MORFIN APRN Dec 20, 2018 13:54
[2018-12-23 16:13] LABS: GC PROBE Negative (Negative)
== END 2018-12-20 14:01 | disposition home or self-care (01) ==
LOC: ER 10:58
DX: O20.0 Threatened abortion (principal); O21.8 Other vomiting complicating pregnancy; R42 Dizziness and giddiness; Z3A.01 Less than 8 weeks gestation of pregnancy
CPT/HCPCS: 36415; 76801; 80053; 80307; 81001; 84702; 85025; 86850; 86900; 86901; 87491; 87591; 96361; 96374; 96375; 99285; G0480; J0780; J2405; J7030; Q0111

== ENCOUNTER 2019-09-19 10:38 | Emergency (ER) | payer OTHER ==
[~2019-09-19] VITALS: Ht 154.9 cm; Wt 59.0 kg
[~2019-09-19 10:38] MED LIST changes: -CETI10TA22 PO; +CETI10TA24 PO; +MECL-75 PO; -MECL25TA3 PO
[2019-09-19 11:12] VITALS: BP 103/72
[2019-09-19] MEDS ORDERED: ONDANSETRON ODT 4 MG TAB.RAPDIS. PO ONE (11:15)
[2019-09-19] MEDS ORDERED: ONDA4TAB12 PO (11:51)
--- NOTE | 2019-09-19 11:51 | PHYS DOC ---
Past Medical History Past Medical History: No Pertinent History Past Surgical History: No Surgical History Smoking Status: Never Smoker Alcohol Use: None Drug Use: None Adult General Chief Complaint Chief Complaint: NAUSEA/VOMITING/DIARRHA HPI HPI Patient is a 33 year old female with no significant medical history presenting to the ED today complaining of nausea vomiting and diarrhea that began this morning. Patient denies any hematemesis or melena. She reports she is currently on her menstrual cycle. Review of Systems Review of Systems Constitutional: Denies fever or chills [] Eyes: Denies change in visual acuity, redness, or eye pain [] HENT: Denies nasal congestion or sore throat [] Respiratory: Denies cough or shortness of breath [] Cardiovascular: No additional information not addressed in HPI [] GI:Reports nausea, vomiting and diarrhea. Denies abdominal pain, : Denies dysuria or hematuria [] Musculoskeletal: Denies back pain or joint pain [] Integument: Denies rash or skin lesions [] Neurologic: Denies headache, focal weakness or sensory changes [] All other systems were reviewed and found to be within normal limits, except as documented in this note. Current Medications Current Medications Current Medications Medications (Trade) Dose Ordered Sig/[place] Start Time Stop Time Status Last Admin Dose Admin Ondansetron HCl (Zofran Odt) 4 mg 1X ONCE 09/19/19 11:15 09/19/19 11:16 DC 09/19/19 11:23 4 MG Allergies Allergies Allergies Coded Allergies Type Severity Reaction Last Updated Verified No Known Drug Allergies 12/15/16 No Physical Exam Physical Exam Constitutional: Well developed, well nourished, no acute distress, non-toxic a ppearance. [] HENT: Normocephalic, atraumatic, bilateral external ears normal, oropharynx moist, no oral exudates, nose normal. [] Eyes: PERRLA, EOMI, conjunctiva normal, no discharge. [] Neck: Normal range of motion, no tenderness, supple, no stridor. [] Cardiovascular:Heart rate regular rhythm, no murmur [] Lungs & Thorax: Bilateral breath sounds clear to auscultation [] Abdomen: Bowel sounds normal, soft, no tenderness, no masses, no pulsatile masses. [] Skin: Warm, dry, no erythema, no rash. [] Back: No tenderness, no CVA tenderness. [] Extremities: No tenderness, no cyanosis, no clubbing, ROM intact, no edema. [] Neurologic: Alert and oriented X 3, normal motor function, normal sensory function, no focal deficits noted. [] Psychologic: Affect normal, judgement normal, mood normal. [] Current Patient Data Vital Signs Vital Signs Date Time Temp Pulse Resp B/P (MAP) Pulse Ox O2 Delivery O2 Flow Rate FiO2 09/19/19 11:12 98.0 68 16 103/72 (82) 96 Room Air 98.0 Lab Values Laboratory Tests Test 09/19/19 10:58 POC Urine HCG, Qualitative Hcg negative (Negative) EKG EKG [] Radiology/Procedures Radiology/Procedures [] Course & Med Decision Making Course & Med Decision Making Pertinent Labs and Imaging studies reviewed. (See chart for details) This is a 33-year-old female patient presenting to the ED today with nausea vomiting and diarrhea that began this morning. Patient was given Zofran. Appears well. Discharged with instructions to push fluids, maintain good antigen and follow-up with primary care doctor in 1 to 2 weeks. Dragon Disclaimer Dragon Disclaimer This electronic medical record was generated, in whole or in part, using a voice recognition dictation system. Departure Departure Impression: Primary Impression: Nausea vomiting and diarrhea Disposition: HOME, SELF-CARE Condition: STABLE Referrals: UNKNOWN PCP NAME (PCP) follow up in 1-2 weeks Patient Instructions: Diarrhea, [id number], Nausea and Vomiting Additional Instructions: You were seen for nausea vomiting and diarrhea. Please push fluids, maintain good and hygiene, take the prescribed medication as ordered as needed for nausea vomiting. Scripts Ondansetron (ONDANSETRON ODT) 4 Mg Tab.rapdis 1 TAB PO PRN Q6-8HRS, #16 TAB Prov: FELICITY MORFIN HUMAN RESOURCES BENEFITS MANAGER 09/19/19 FEILCITY MORFIN HUMAN RESOURCES BENEFITS MANAGER Sep 19, 2019 11:51
== END 2019-09-19 11:58 | disposition home or self-care (01) ==
LOC: ER 10:38
DX: R11.2 Nausea with vomiting, unspecified (principal); R19.7 Diarrhea, unspecified
CPT/HCPCS: 81025; 99283; Q0162

== ENCOUNTER 2019-12-17 13:33 | Emergency (ER) | payer OTHER ==
[~2019-12-17] VITALS: Ht 152.4 cm; Wt 54.5 kg
[2019-12-17] MEDS ORDERED: fentaNYL PF VIAL 100 MCG/2 ML VIAL IVP ONE (14:00)
[2019-12-17] MEDS ORDERED: LIDO:MAALOX 1:1 20 ML SINGLE DOSE. SWSW ONE (14:00)
[2019-12-17] MEDS ORDERED: ONDANSETRON PF 4 MG/2 ML VIAL. IVP ONE (14:00)
[2019-12-17 14:15] LABS: BILIRUBIN,URINE NEGATIVE (NEG); CLARITY,URINE CLEAR; COLOR,URINE YELLOW; NITRITE,URINE NEGATIVE (NEG); PH,URINE 5.5 (<5.0-8.0); PROTEIN,URINE NEGATIVE (NEG-TRACE); UROBILINOGEN,URINE 0.2 mg/dL (0.2 mg/dL)
[2019-12-17 14:23] LABS: AMPHETAMINE/METHAMPHETAMINE NEG (NEG); BARBITURATES NEG (NEG); BENZODIAZEPINES NEG (NEG); CANNABINOIDS NEG (NEG); COCAINE NEG (NEG); METHADONE NEG (NEG); OPIATES NEG (NEG); PHENCYCLIDINE NEG (NEG)
[2019-12-17 14:26] LABS: SQUAMOUS EPITHELIAL CELL,UR MOD /LPF
[2019-12-17 14:27] LABS: AMORPHOUS SEDIMENT,UR PRESENT /HPF; BACTERIA,URINE FEW /HPF (0-FEW); RBC,URINE 0 /HPF (0-2); WBC,URINE 0 /HPF (0-4)
[2019-12-17 14:35] LABS: BASO # 0.1 x10^3/uL (0.0-0.2); BASO % 1 % (0-3); EOS # 0.6 x10^3/uL (0.0-0.7); EOS % 10 % (0-3); HEMATOCRIT 37.1 % (36.0-47.0); LYMPH # 1.6 x10^3/uL (1.0-4.8); LYMPH % 24 % (24-48); MEAN CORPUSCULAR HEMOGLOBIN 30 pg (25-35); MEAN CORPUSCULAR HGB CONC 35 g/dL (31-37); MEAN CORPUSCULAR VOLUME 86 fL (79-100); MONO # 0.7 x10^3/uL (0.0-1.1); MONO % 10 % (0-9); NEUT # 3.6 x10^3/uL (1.8-7.7); NEUT % 55 % (31-73); PLATELET COUNT 139 x10^3/uL (140-400); RED BLOOD COUNT 4.33 x10^6/uL (3.50-5.40); RED CELL DISTRIBUTION WIDTH 13.8 % (11.5-14.5); WHITE BLOOD COUNT 6.5 x10^3/uL (4.0-11.0)
--- NOTE | 2019-12-17 14:36 | RAD ---
Complete abdominal ultrasound HISTORY: Right upper quadrant pain. FINDINGS: Visualized pancreas appears unremarkable. Inferior vena cava appears patent. Limited visualization of the aorta, proximal aorta is nonaneurysmal but the mid and distal aorta is not well seen likely due to bowel gas. The liver demonstrates increased echogenicity compatible with fatty infiltration. No definite focal lesion or hepatomegaly. There are some echogenic shadowing structures within the gallbladder, in the dependent position. Most compatible with cholelithiasis. Gallbladder wall does not appear excessively thickened. No evidence of pericholecystic fluid. No significant biliary ductal dilatation. Right kidney measures 11.3 x 4.0 cm without hydronephrosis or focal lesion. Spleen is not enlarged. Left kidney measures 12.0 x 5.4 cm without hydronephrosis or focal lesion. IMPRESSION: 1. Findings are compatible with cholelithiasis. 2. Hepatic steatosis. Electronically signed by: Torsten Champion MD (12/17/2019 2:33 PM) [id number]
[2019-12-17 14:41] LABS: CALCIUM 8.6 mg/dL (8.5-10.1); CREATININE 0.8 mg/dL (0.6-1.0); GFR 83.1; POTASSIUM 3.8 mmol/L (3.5-5.1)
[2019-12-17 14:47] LABS: ALBUMIN 3.9 g/dL (3.4-5.0); ALBUMIN/GLOBULIN RATIO 1.1 (1.0-1.7); TOTAL BILIRUBIN 0.8 mg/dL (0.2-1.0); TOTAL PROTEIN 7.3 g/dL (6.4-8.2)
[2019-12-17] MEDS ORDERED: TRAM50TA PO (15:40)
--- NOTE | 2019-12-17 15:41 | PHYS DOC ---
Past Medical History Past Medical History: No Pertinent History Past Surgical History: No Surgical History Smoking Status: Never Smoker Alcohol Use: None Drug Use: None General Adult EDM: Chief Complaint: ABDOMINAL PAIN HPI: HPI: Patient is a 34 year old female with no significant medical history who presents to the ED today complaining of 7 out of 10 bilateral upper abdominal pain worse on the right side that began a week ago. Patient describes the pain as sharp and intermittent. Denies anything specifically exacerbating or relieving the pain. Denies any nausea vomiting, denies any diarrhea. Review of Systems: Review of Systems: Constitutional: Denies fever or chills. [] Eyes: Denies change in visual acuity. [] HENT: Denies nasal congestion or sore throat. [] Respiratory: Denies cough or shortness of breath. [] Cardiovascular: Denies chest pain or edema. [] GI: Reports bilateral upper abdominal pain, denies nausea, vomiting, bloody stools or diarrhea. [] : Denies dysuria. [] Musculoskeletal: Denies back pain or joint pain. [] Integument: Denies rash. [] Neurologic: Denies headache, focal weakness or sensory changes. [] Psychiatric: Denies depression or anxiety. [] Heart Score: Risk Factors: Risk Factors: DM, Current or recent (<one month) smoker, HTN, HLP, family history of CAD, obesity. Risk Scores: Score 0 - 3: 2.5% MACE over next 6 weeks - Discharge Home Score 4 - 6: 20.3% MACE over next 6 weeks - Admit for Clinical Observation Score 7 - 10: 72.7% MACE over next 6 weeks - Early Invasive Strategies Current Medications: Current Medications Medications (Trade) Dose Ordered Sig/[facility] Start Time Stop Time Status Last Admin Dose Admin Fentanyl Citrate (Fentanyl 2ml Vial) 50 mcg 1X ONCE 12/17/19 14:00 12/17/19 14:01 DC 12/17/19 14:30 50 MCG Multi-Ingredient Mouthwash/Gargle (Gi Cocktail) 20 ml 1X ONCE 12/17/19 14:00 12/17/19 14:01 DC 12/17/19 14:30 20 ML Ondansetron HCl (Zofran) 4 mg 1X ONCE 12/17/19 14:00 12/17/19 14:01 DC 12/17/19 14:30 4 MG Allergies: Allergies: Allergies Coded Allergies Type Severity Reaction Last Updated Verified No Known Drug Allergies 12/15/16 No Physical Exam: PE: Constitutional: Well developed, well nourished, no acute distress, non-toxic appearance. [] HENT: Normocephalic, atraumatic, bilateral external ears normal, oropharynx moist, no oral exudates, nose normal. [] Eyes: PERRLA, EOMI, conjunctiva normal, no discharge. [] Neck: Normal range of motion, no tenderness, supple, no stridor. [] Cardiovascular:Heart rate regular rhythm, no murmur [] Lungs & Thorax: Bilateral breath sounds clear to auscultation [] Abdomen: Bowel sounds normal, soft, mild tenderness on palpation of the right upper quadrant with negative Ma sign, no right lower quadrant tenderness, no masses, no pulsatile masses. [] Skin: Warm, dry, no erythema, no rash. [] Back: No tenderness, no CVA tenderness. [] Extremities: No tenderness, no cyanosis, no clubbing, ROM intact, no edema. [] Neurologic: Alert and oriented X 3, normal motor function, normal sensory function, no focal deficits noted. [] Psychologic: Affect normal, judgement normal, mood normal. [] Current Patient Data: Labs: Laboratory Tests Test 12/17/19 13:45 12/17/19 13:57 12/17/19 14:20 Urine Collection Type Unknown Urine Color Yellow Urine Clarity Clear Urine pH 5.5 (<5.0-8.0) Urine Specific [place] 1.025 (1.000-1.030) Urine Protein Negative mg/dL (NEG-TRACE) Urine Glucose (UA) Negative mg/dL (NEG) Urine Ketones (Stick) Negative mg/dL (NEG) Urine Blood Trace (NEG) Urine Nitrite Negative (NEG) Urine Bilirubin Negative (NEG) Urine Urobilinogen Dipstick 0.2 mg/dL (0.2 mg/dL) Urine Leukocyte Esterase Negative (NEG) Urine RBC 0 /HPF (0-2) Urine WBC 0 /HPF (0-4) Urine Squamous Epithelial Cells Mod /LPF Urine Amorphous Sediment Present /HPF Urine Bacteria Few /HPF (0-FEW) Urine Mucus Mod /LPF Urine Opiates Screen Neg (NEG) Urine Methadone Screen Neg (NEG) Urine Barbiturates Neg (NEG) Urine Phencyclidine Screen Neg (NEG) Urine Amphetamine/Methamphetamine Neg (NEG) Urine Benzodiazepines Screen Neg (NEG) Urine Cocaine Screen Neg (NEG) Urine Cannabinoids Screen Neg (NEG) Urine Ethyl Alcohol Neg (NEG) POC Urine HCG, Qualitative Hcg negative (Negative) White Blood Count 6.5 x10^3/uL (4.0-11.0) Red Blood Count 4.33 x10^6/uL (3.50-5.40) Hemoglobin 13.0 g/dL (12.0-15.5) Hematocrit 37.1 % (36.0-47.0) Mean Corpuscular Volume 86 fL (79-100) Mean Corpuscular Hemoglobin 30 pg (25-35) Mean Corpuscular Hemoglobin Concent 35 g/dL (31-37) Red Cell Distribution Width 13.8 % (11.5-14.5) Platelet Count 139 x10^3/uL (140-400) L Neutrophils (%) (Auto) 55 % (31-73) Lymphocytes (%) (Auto) 24 % (24-48) Monocytes (%) (Auto) 10 % (0-9) H Eosinophils (%) (Auto) 10 % (0-3) H Basophils (%) (Auto) 1 % (0-3) Neutrophils # (Auto) 3.6 x10^3/uL (1.8-7.7) Lymphocytes # (Auto) 1.6 x10^3/uL (1.0-4.8) Monocytes # (Auto) 0.7 x10^3/uL (0.0-1.1) Eosinophils # (Auto) 0.6 x10^3/uL (0.0-0.7) Basophils # (Auto) 0.1 x10^3/uL (0.0-0.2) Sodium Level 140 mmol/L (136-145) Potassium Level 3.8 mmol/L (3.5-5.1) Chloride Level 103 mmol/L (98-107) Carbon Dioxide Level 27 mmol/L (21-32) Anion Gap 10 (6-14) Blood Urea Nitrogen 17 mg/dL (7-20) Creatinine 0.8 mg/dL (0.6-1.0) Estimated GFR (Cockcroft-Gault) 83.1 BUN/Creatinine Ratio 21 (6-20) H Glucose Level 140 mg/dL (70-99) H Calcium Level 8.6 mg/dL (8.5-10.1) Total Bilirubin 0.8 mg/dL (0.2-1.0) Aspartate Amino Transferase (AST) 13 U/L (15-37) L Alanine Aminotransferase (ALT) 20 U/L (14-59) Alkaline Phosphatase 66 U/L (46-116) Total Protein 7.3 g/dL (6.4-8.2) Albumin 3.9 g/dL (3.4-5.0) Albumin/Globulin Ratio 1.1 (1.0-1.7) Lipase 94 U/L (73-393) Ethyl Alcohol Level < 10 mg/dL (0-10) Laboratory Tests 12/17/19 14:20 Laboratory Tests 12/17/19 14:20 Vital Signs: Vital Signs Date Time Temp Pulse Resp B/P (MAP) Pulse Ox O2 Delivery O2 Flow Rate FiO2 12/17/19 14:30 19 95 Room Air 12/17/19 13:45 98.4 80 103/65 (78) 98.4 EKG: EKG: [] Radiology/Procedures: Radiology/Procedures: []PROCEDURE: ABDOMEN COMPLETE Complete abdominal ultrasound HISTORY: Right upper quadrant pain. FINDINGS: Visualized pancreas appears unremarkable. Inferior vena cava appears patent. Limited visualization of the aorta, proximal aorta is nonaneurysmal but the mid and distal aorta is not well seen likely due to bowel gas. The liver demonstrates increased echogenicity compatible with fatty infiltration. No definite focal lesion or hepatomegaly. There are some echogenic shadowing structures within the gallbladder, in the dependent position. Most compatible with cholelithiasis. Gallbladder wall does not appear excessively thickened. No evidence of pericholecystic fluid. No significant biliary ductal dilatation. Right kidney measures 11.3 x 4.0 cm without hydronephrosis or focal lesion. Spleen is not enlarged. Left kidney measures 12.0 x 5.4 cm without hydronephrosis or focal lesion. IMPRESSION: 1. Findings are compatible with cholelithiasis. 2. Hepatic steatosis. Electronically signed by: Camelia Chmapion MD (12/17/2019 2:33 PM) [id number] DICTATED and SIGNED BY: CAMELIA CHAMPION MD DATE: 12/17/19 1433 Course & Med Decision Making: Course & Med Decision Making Pertinent Labs and Imaging studies reviewed. (See chart for details) This is a 34-year-old female patient presenting to the ED today with bilateral upper abdominal pain worse on the right side that began a week ago. Negative urine hCG. Urine analysis negative for infection, CBC, CMP, lipase-no acute findings. Abdominal ultrasound was positive for cholelithiasis, no cholecystitis Provided general surgery for follow-up as an outpatient. Dragon Disclaimer: Dragon Disclaimer: This electronic medical record was generated, in whole or in part, using a voice recognition dictation system. Departure Departure Impression: Primary Impression: Cholelithiasis Qualified Codes: K80.20 - Calculus of gallbladder without cholecystitis without obstruction Disposition: HOME, SELF-CARE Condition: STABLE Referrals: UNKNOWN PCP NAME (PCP) JASPAL LANGLEY MD follow up in 1-2 weeks Patient Instructions: Cholelithiasis, [id number] Additional Instructions: You have gallbladder disease. Please follow-up with a general surgeon provided in 1 to 2 weeks. Avoid eating spicy, fatty foods. Avoid eating big meals. Scripts Tramadol Hcl (TRAMADOL HCL) 50 Mg Tablet 50 MG PO Q6HRS PRN for PAIN, #20 TAB Prov: FELICITY MORFIN APRN 12/17/19 FELICITY MORFIN APRN Dec 17, 2019 15:41
[2019-12-17 15:51] VITALS: BP 104/71
== END 2019-12-17 16:01 | disposition home or self-care (01) ==
LOC: ER 13:33
DX: K80.20 Calculus of gallbladder without cholecystitis without obstruction (principal); K76.0 Fatty (change of) liver, not elsewhere classified
CPT/HCPCS: 36415; 76700; 80053; 80307; 81001; 81025; 83690; 85025; 96374; 96375; 99285; G0480; J2405; J3010

== ENCOUNTER 2020-07-16 17:28 | Emergency (ER) | payer OTHER ==
[~2020-07-16] VITALS: Ht 154.9 cm; Wt 51.4 kg
[~2020-07-16 17:28] MED LIST changes: -CETI10TA24 PO; +CETI10TA74 PO; +TRAM50TA PO
[2020-07-16] MEDS ORDERED: ACETAMINOPHEN 500 MG TABLET PO ONE (19:30)
[2020-07-16 20:00] LABS: BILIRUBIN,URINE NEGATIVE (NEG); CLARITY,URINE CLEAR; COLOR,URINE YELLOW; NITRITE,URINE NEGATIVE (NEG); PROTEIN,URINE NEGATIVE (NEG-TRACE); UROBILINOGEN,URINE 0.2 mg/dL (0.2 mg/dL)
--- NOTE | 2020-07-16 20:07 | RAD ---
Exam: Chest one view INDICATION: Fever TECHNIQUE: Frontal view of the chest Comparisons: 12/15/2016 FINDINGS: The cardiomediastinal silhouette and pulmonary vessels are within normal limits. The lung and pleural spaces are clear. IMPRESSION: No acute cardiopulmonary process. Electronically signed by: Alanna Landers MD (07/16/2020 8:04 PM) [id number]
[2020-07-16 20:14] LABS: BACTERIA,URINE FEW /HPF (0-FEW); RBC,URINE 0 /HPF (0-2); WBC,URINE OCC /HPF (0-4)
[2020-07-16] MEDS ORDERED: PRED50TA PO (21:10)
--- NOTE | 2020-07-16 21:11 | PHYS DOC ---
Past Medical History Past Medical History: No Pertinent History (FELICITY MORFIN APRN) Past Surgical History: No Surgical History (FELICITY MORFIN APRN) Smoking Status: Never Smoker Alcohol Use: None Drug Use: None (FELICITY MORFIN APRN) General Adult EDM: Chief Complaint: FEVER HPI: HPI: Patient is a 34 year old female with no significant medical history who presents the ED today complaining of subjective fevers, body aches, chills, and a cough for 3 days. (FELICITY MORFIN APRN) Review of Systems: Review of Systems: Constitutional: Reports fever, chills Eyes: Denies change in visual acuity. [] HENT: Denies nasal congestion or sore throat. [] Respiratory: Reports cough, denies shortness of breath. [] Cardiovascular: Denies chest pain or edema. [] GI: Denies abdominal pain, nausea, vomiting, bloody stools or diarrhea. [] : Denies dysuria. [] Musculoskeletal: Denies back pain or joint pain. [] Integument: Denies rash. [] Neurologic: Denies headache, focal weakness or sensory changes. [] Psychiatric: Denies depression or anxiety. [] (FELICITY MORFIN APRN) Heart Score: Risk Factors: Risk Factors: DM, Current or recent (<one month) smoker, HTN, HLP, family history of CAD, obesity. Risk Scores: Score 0 - 3: 2.5% MACE over next 6 weeks - Discharge Home Score 4 - 6: 20.3% MACE over next 6 weeks - Admit for Clinical Observation Score 7 - 10: 72.7% MACE over next 6 weeks - Early Invasive Strategies (FELICITY MORFIN APRN) Current Medications: Current Medications Medications (Trade) Dose Ordered Sig/[place] Start Time Stop Time Status Last Admin Dose Admin Acetaminophen (Tylenol) 1,000 mg 1X ONCE 07/16/20 19:30 07/16/20 19:33 DC 07/16/20 20:01 1,000 MG (FELICITY MORFIN APRN) Allergies: Allergies: Allergies Coded Allergies Type Severity Reaction Last Updated Verified No Known Drug Allergies 12/15/16 No (FELICITY MORFIN APRN) Physical Exam: PE: Constitutional: Well developed, well nourished, no acute distress, non-toxic appearance. [] HENT: Normocephalic, atraumatic, bilateral external ears normal, oropharynx moist, no oral exudates, nose normal. [] Eyes: PERRLA, EOMI, conjunctiva normal, no discharge. [] Neck: Normal range of motion, no tenderness, supple, no stridor. [] Cardiovascular:Heart rate regular rhythm, no murmur [] Lungs & Thorax: Bilateral breath sounds clear to auscultation [] Abdomen: Bowel sounds normal, soft, no tenderness, no masses, no pulsatile masses. [] Skin: Warm, dry, no erythema, no rash. [] Back: No tenderness, no CVA tenderness. [] Extremities: No tenderness, no cyanosis, no clubbing, ROM intact, no edema. [] Neurologic: Alert and oriented X 3, normal motor function, normal sensory function, no focal deficits noted. [] Psychologic: Affect normal, judgement normal, mood normal. [] (FELICITY MORFIN APRN) Current Patient Data: Labs: Laboratory Tests Test 07/16/20 19:32 07/16/20 19:48 Urine Collection Type Unknown Urine Color Yellow Urine Clarity Clear Urine pH 6.0 (<5.0-8.0) Urine Specific [place] 1.020 (1.000-1.030) Urine Protein Negative mg/dL (NEG-TRACE) Urine Glucose (UA) Negative mg/dL (NEG) Urine Ketones (Stick) Negative mg/dL (NEG) Urine Blood Negative (NEG) Urine Nitrite Negative (NEG) Urine Bilirubin Negative (NEG) Urine Urobilinogen Dipstick 0.2 mg/dL (0.2 mg/dL) Urine Leukocyte Esterase Negative (NEG) Urine RBC 0 /HPF (0-2) Urine WBC Occ /HPF (0-4) Urine Squamous Epithelial Cells Mod /LPF Urine Bacteria Few /HPF (0-FEW) Urine Mucus Mod /LPF POC Urine HCG, Qualitative Hcg negative (Negative) Vital Signs: Vital Signs Date Time Temp Pulse Resp B/P (MAP) Pulse Ox O2 Delivery O2 Flow Rate FiO2 07/16/20 20:06 99.1 100 107/67 (80) 97 99.1 07/16/20 20:00 18 Room Air (FELICITY MORFIN APRN) EKG: EKG: [] (FELICITY MORFIN APRN) Radiology/Procedures: Radiology/Procedures: []PROCEDURE: CHEST AP ONLY Exam: Chest one view INDICATION: Fever TECHNIQUE: Frontal view of the chest Comparisons: 12/15/2016 FINDINGS: The cardiomediastinal silhouette and pulmonary vessels are within normal limits. The lung and pleural spaces are clear. IMPRESSION: No acute cardiopulmonary process. Electronically signed by: Alanna Grant MD (07/16/2020 8:04 PM) [facility] DICTATED and SIGNED BY: ALANNA GRANT MD DATE: 07/16/[id number] 0 (FELICITY MORFIN APRN) Course & Med Decision Making: Course & Med Decision Making Pertinent Labs and Imaging studies reviewed. (See chart for details) This is a 34-year-old female patient presenting to the ED today with subjective fevers, body aches, chills, cough, symptoms for 3 days. Chest x-ray is negative, UA is negative. Tested for COVID-19, results will be called to patient. Instructed to quarantine self. Provided return precautions. Tylenol/ Motrin for pain or fever. Instructed to push fluids and maintain good hand hygiene. (FELICITY MORFIN APRN) Dragon Disclaimer: Dragon Disclaimer: This electronic medical record was generated, in whole or in part, using a voice recognition dictation system. (FELICITY MORFIN APRN) Departure Departure Impression: Primary Impression: Fever Qualified Codes: R50.9 - Fever, unspecified Additional Impression: Cough Disposition: 01 DC HOME SELF CARE/HOMELESS Condition: STABLE Referrals: UNKNOWN PCP NAME (PCP) follow up in one week Patient Instructions: Cough, Adult, [id number], Fever, Adult, [id number] Additional Instructions: You were evaluated in the emergency room, your chest x-ray is negative for any acute findings, your urine was negative for infection. You were tested for COVID-19, we will call you when results are available. Quarantine yourself until you hear from us. Push fluids, rest, maintain good and hygiene, take Tylenol Motrin for pain or fever. Come back to the ED at any point symptoms worsen Scripts Prednisone (PREDNISONE) 50 Mg Tablet 1 TAB PO DAILY, #5 TAB Prov: FELICITY MORFIN APRN 07/16/20 Attending Signature Attending Signature I have reviewed the PA/MANAGING COGNITIVE ENGINEER's note and plan of care. I was available for consultation as needed during the patient's visit in the emergency department. I agree with the clinical impression, plan, and disposition. (CAMELIA DAWSON DO) FELICITY MORFIN APRN Jul 16, 2020 21:11 CAMELIA DAWSON DO Jul 16, 2020 22:33
[2020-07-16 21:50] VITALS: BP 112/73
--- NOTE | 2020-07-19 09:44 | NUR ---
IP: Attempted to contact pt concerning the COVID results. No answer.
--- NOTE | 2020-07-19 09:50 | NUR ---
IP: Informed pt of positive COVID test and the need to quarantine for 14 days. Pt verbalized understanding.
== END 2020-07-16 21:50 | disposition home or self-care (01) ==
LOC: ER 17:28
DX: U07.1 COVID-19 (principal); R50.9 Fever, unspecified; R05 Cough
CPT/HCPCS: 71045; 81001; 81025; 99284; C9803; U0003